=== PATIENT | female | born 1965 ===

== ENCOUNTER 2023-08-11 07:36 | Emergency (ER) | payer OTHER, SELFPAY ==
--- NOTE | ~2023-08-11 | CT_ITS ---
EXAMINATION: CTA OF THE HEAD AND NECK CLINICAL INFORMATION: Left facial deficits. COMPARISON: None available. TECHNIQUE: Test bolus sequences followed by intravenous administration 70 mL of Omnipaque 350. Helical imaging was performed in the axial plane from the mediastinum to the skull vertex. Delayed postcontrast imaging of the head was also performed. The data was processed at the chemistry technologist's workstation for generation of MIP sequences. Three-dimensional volume rendered reformatted images were also generated at an offline 3-D workstation. Stenoses are assessed in accordance with NASCET criteria unless otherwise indicated. This CT examination was performed using dose optimization techniques as appropriate, variously including the following: *Automated exposure control *Adjustment of mA and/or kV according to patient size (this includes techniques or standardized protocols for targeted exams where dose is matched to indication/reason for exam; i.e. extremities or head) *Use of iterative reconstruction technique DLP: 2077 mGy-cm. FINDINGS: CT head: There is no evidence of acute intracranial hemorrhage or territorial infarction. There is no loss of lópez to white matter differentiation. No abnormal mass effect or midline shift is seen. No extra-axial fluid collections are identified. There is no abnormal enhancement. The ventricles are normal in size. There is no abnormal attenuation within the brain parenchyma. The osseous structures and soft tissues are normal. The mastoid air cells and visualized portions of the paranasal sinuses are well aerated. CTA neck: The imaged aortic arch and origins of the great vessels are normal. The common carotid arteries are widely patent. The carotid bifurcations are normal. The cervical internal carotid arteries are normal. The vertebral arteries opacify normally and are of normal caliber. The soft tissues of the neck are unremarkable. Multilevel hypertrophic facet arthropathy noted in the cervical spine with foraminal encroachment. There is moderate disc space narrowing and bulky anterior endplate spurring at the C5-C6 level. Mild anterolisthesis visible at C3-C4. The imaged portions of the lungs are clear. CTA head: The intradural vertebral arteries and basilar artery are normal. The posterior cerebral arteries are widely patent. The internal carotid arteries are of normal caliber. Suspected small infundibulum at the origin of the right posterior communicating artery segment. The CELY and MCA vascular complexes bilaterally are normal. A fenestrated anterior communicating artery segment is incidentally noted. The venous sinuses opacify normally. CT/CT angio head neck IMPRESSION: Normal CT angiogram of the head and neck. No vascular occlusion or hemodynamically significant stenosis. Imaging findings reported to Dr. Haque at 11:01 AM on 08/11/2023.
[2023-08-11 07:41] VITALS: BP 144/80; PULSE 84; RESP 16; TEMP 36.3; O2SAT 95; BMI 34.8
[2023-08-11 08:08] LABS: MANUAL DIFF FLAG NO
[2023-08-11 08:16] LABS: Basophils Percent Auto 0.4 % (0-2); Eosinophils Absolute Auto 0.2 X10*3/uL (0.0-0.4); Eosinophils Percent Auto 4.2 % (0-4); Hematocrit 41.6 % (37.0-47.0); Hemoglobin 13.8 g/dl (12.0-16.0); Imm Gran Abs Auto 0.02 X10*3/uL (0.00-0.03); Imm Gran Pct Auto 0.4 % (0.0-0.4); Lymphocytes Absolute Auto 1.7 X10*3/uL (1.2-4.9); Lymphocytes Percent Auto 31.3 % (20-40); Mean Corpuscular HGB Conc 33.2 g/dl (31.0-35.0); Mean Corpuscular Hemoglobin 28.3 pg (27.0-33.0); Mean Corpuscular Volume 85.2 fL (80.0-98.0); Mean Platelet Volume 10.5 fL (9.4-12.3); Monocytes Absolute Auto 0.3 X10*3/uL (0.1-1.2); Monocytes Percent Auto 5.9 % (2-11); Neutrophils Absolute Auto 3.1 x10*3/uL (2.0-8.3); Neutrophils Percent Auto 57.8 % (45-73); Platelet Count 214 X10*3/uL (160-400); Red Blood Count 4.88 X10*6/uL (4.20-5.50); White Blood Count 5.4 X10*3/uL (4.8-10.8)
[2023-08-11 08:17] LABS: INTERNATIONAL NORM RATIO 0.9 (0.9-1.1); Prothrombin Time 10.7 SEC (11.1-13.3)
[2023-08-11 08:20] LABS: Partial Thromboplastin Time 35.6 SEC (26.0-36.8)
--- NOTE | 2023-08-11 08:35 | ED_ITS ---
HPI - Neuro Symptoms/Deficit General Chief Complaint: Neuro Symptoms/Deficit Stated Complaint: facial numbness Time Seen by Provider: 08/11/23 08:27 Source: patient Mode of arrival: ambulatory Limitations: no limitations History of Present Illness HPI Narrative: 57 yo female with PMH of psoriasis, left sided bells palsy 15 years ago idiopathic here with c/o going to bed okay at 10pm then waking up at 415 with L sided facial numbness tingling and progressive facial droop initially affecting the lower mouth now affecting the eye it keeps progressing. No headaches, no trauma, no recent URI. Not on blood thinners. No neck manipulation or issues. States she has has this before. Onset (ago): hour(s) (last known well 10pm) Location: left face History of same: Yes Severity: moderate Quality: weak and tingling Relieving factors: none Exacerbating factors: none Context: gradual onset On Anticoagulants: No Associated symptoms: denies other symptoms Treatments Prior to Arrival: none Related Data Previous Rx's Medication Instructions Recorded prednisone 20 mg tablet 60 mg (3 x 20 mg) PO DAILY #9 tabs 10/02/22 triamcinolone acetonide 0.025 % 1 appl topical BID #15 grams 10/02/22 topical cream prednisone 20 mg tablet 40 mg (2 x 20 mg) PO DAILY 5 days 08/11/23 #10 tabs valacyclovir 1 gram tablet 1,000 mg PO TID 7 days #21 tabs 08/11/23 (Valtrex) Allergies Allergy/AdvReac Type Severity Reaction Status Date / Time No Known Allergies Allergy Verified 10/02/22 16:11 Review of Systems 2 Review of Systems: Constitutional : No Fever, No Chills, No Fatigue ENT/Mouth : No sore throat, No Rhinorrhea Eyes: No Eye Pain, No Swelling, No Redness Cardiovascular : No Chest Pain, No SOB, No Dyspnea on Exertion Respiratory : No Cough, No Sputum Gastrointestinal : No Nausea, No Vomiting, No Diarrhea, No abdominal Pain Genitourinary : No Dysuria, No Urinary Frequency, No Hematuria, Musculoskeletal : No joint pain, No Myalgias, No Joint Swelling Skin : No Skin Lesions, No rash Neuro : pos Weakness, pos Numbness, No Dizziness, no Headache Psych : No Anxiety/Panic, No Depression Heme/Lymph: No Bruising, No Bleeding,No Lymphadenopathy Endocrine : No Polyuria, No Polydipsia All other systems reviewed and are negative [facility] Past Medical History Attestation statement: The following information was validated with the patient. Source: old records reviewed Medical History Psoriasis Social History Social History Patient Tobacco Use Status: Never used Tobacco Smoked in Last 30 Days: No Use of substances other than those prescribed or required for medical reasons: No Advance Directives: No Advance Directives Information Provided: No Patient : No Physical Exam 2 Vital Signs: Vital Signs: Last Vital Signs Temp 97.7 F 08/11/23 10:56 Pulse 75 08/11/23 10:56 Resp 16 08/11/23 10:56 BP 145/88 H 08/11/23 10:56 Pulse Ox 98 08/11/23 10:56 O2 Del Method Room Air 08/11/23 10:56 BMI result Body Mass Index 34.8 Appearance: Alert. Oriented X3. No acute distress. Eyes: Pupils equal, round and reactive to light. ENT: Pharynx normal. TMs normal Neck: Normal inspection. Neck supple. CVS: Normal heart rate and rhythm. Pulses normal. Respiratory: No respiratory distress. Breath sounds normal. Abdomen: Soft and nontender. Skin: Skin warm and dry. Normal skin color. Normal skin turgor. Extremities: No lower extremity edema. No calf ttp Neuro: Oriented X 3. L sided facial droop involving lower lip, cheek, eyelid and starting to affect the eyebrow area. No sensory deficit. Medications Administered Discontinued Medications Generic Name Dose Route Start Last Admin Trade Name Jace PRN Reason Stop Dose Admin Iohexol 100 ml 08/11/23 09:50 08/11/23 09:51 Iohexol 350 Mg/Ml 100 Ml Infus..Btl IV 08/11/23 09:51 70 ml ONCE ONE Administration Medical Decision Making Medical Decision Making MDM Narrative: 57 yo female with PMH of psoriasis, idiopathic bells palsy 15 years ago here with c/o L sided numbness, weakness last known well 10pm no recent trauma or neck manipulation - this happened before same side. She has progressive symptoms it has worsened it seems more consistent with bells palsy given the worsening symptoms and starting to involve the eyebrow and forehead. At this time labs, CTA angio and if negative will dc home on valtrex and steroids. Differential Diagnosis Differential Diagnoses: The differential diagnosis associated with the presentation includes bells palsy, less likely stroke Admission/Observation Consideration of admission/observation: Escalation of care including admission/observation considered not toxic no acute findings suspect peripheral issue Lab Data MDM Lab Attestation statement: I reviewed the patient's lab results. 08/11/23 07:53 08/11/23 07:53 Labs: Lab Results 08/11/23 Range/Units 07:53 WBC 5.4 (4.8-10.8) X10*3/uL RBC 4.88 (4.20-5.50) X10*6/uL Hgb 13.8 (12.0-16.0) g/dl Hct 41.6 (37.0-47.0) % MCV 85.2 (80.0-98.0) fL MCH 28.3 (27.0-33.0) pg MCHC 33.2 (31.0-35.0) g/dl RDW 13.0 (11.0-16.0) % Plt Count 214 (160-400) X10*3/uL MPV 10.5 (9.4-12.3) fL Immature Gran % (Auto) 0.4 (0.0-0.4) % Neut % (Auto) 57.8 (45-73) % Lymph % (Auto) 31.3 (20-40) % [place] % (Auto) 5.9 (2-11) % Eos % (Auto) 4.2 H (0-4) % Baso % (Auto) 0.4 (0-2) % Lymph # (Auto) 1.7 (1.2-4.9) X10*3/uL [place] # (Auto) 0.3 (0.1-1.2) X10*3/uL Eos # (Auto) 0.2 (0.0-0.4) X10*3/uL Baso # (Auto) 0.0 (0.0-0.2) X10*3/uL Abs Immat Gran (auto) 0.02 (0.00-0.03) X10*3/uL Absolute Neuts (auto) 3.1 (2.0-8.3) x10*3/uL Absolute Nucleated RBC 0.000 (0.0-0.012) X10*3/uL Nucleated RBC % (auto) 0.0 (0.0-0.2) /100WBC PT 10.7 L (11.1-13.3) SEC INR 0.9 (0.9-1.1) APTT 35.6 (26.0-36.8) SEC Sodium 143 (135-145) mmol/L Potassium 3.8 (3.3-5.1) mmol/L Chloride 110 H (96-108) mmol/L Carbon Dioxide 24 (22-29) mmol/L Anion Gap 13 (12-20) BUN 7 L (9-16) mg/dL Creatinine 0.65 (0.5-1.4) mg/dL Estim Creat Clear Calc 82.5 Estimated GFR > 60 Random Glucose 140 H (60-115) mg/dL Calcium 9.3 (8.4-10.2) mg/dL Independent Interpretation I performed an independent interpretation of an: EKG and CT Scan (no stroke) Interpretation: Rate: 71 Rhythm: NSR [place]: left Normal P waves. Normal LISA. Normal QRS complex. ST T wave : normal no NASH qTC: 456 prior studies: no acute ischemia The study has been interpreted contemporaneously by me. . Radiology Impression Discussion of test interpretation with radiology: I discussed test interpretation with the radiologist and I have reviewed the radiologist's reading. Independent Historian Clinical information obtained from an independent historian. History obtained from or confirmed by: Spouse External Record Review External record reviewed: Outpatient record Discharge Plan Discharge Clinical Impression: Wan's palsy Patient Disposition: Home, Self-Care Instructions: Wan Palsy (ED) Additional Instructions: return for worsening symptoms or any other concerns use lubricating eye drops on the eye to prevent it from drying out you can use gentle tape on the eye while sleeping follow up with your doctor in the next week Prescriptions: New prednisone 20 mg tablet 40 mg PO DAILY 5 Days Qty: 10 0RF valacyclovir [Valtrex] 1 gram tablet 1,000 mg PO TID 7 Days Qty: 21 0RF No Action prednisone 20 mg tablet 60 mg PO DAILY Qty: 9 0RF triamcinolone acetonide 0.025 % cream 1 appl topical BID Qty: 15 0RF Stand Alone Forms: Work/School Release
[2023-08-11 08:36] LABS: Anion Gap 13 (12-20); Blood Urea Nitrogen 7 mg/dL (9-16); Calcium 9.3 mg/dL (8.4-10.2); Carbon Dioxide 24 mmol/L (22-29); Chloride 110 mmol/L (96-108); Creatinine Clr Calc Pharmacy 82.5; Estimated Glomerular Filt Rate > 60; Glucose Random 140 mg/dL (60-115); Potassium 3.8 mmol/L (3.3-5.1); Sodium 143 mmol/L (135-145)
[2023-08-11 08:43] VITALS: BP 137/79; PULSE 82; RESP 16; TEMP 36.7; O2SAT 94
--- NOTE | 2023-08-11 08:44 | ECG_ITS ---
Test Reason : NEURO SYMPTOMS Blood Pressure : / mmHG Vent. Rate : 071 BPM Atrial Rate : 071 BPM P-R Int : 144 ms QRS Dur : 070 ms QT Int : 420 ms P-R-T Axes : -12 -10 025 degrees QTc Int : 456 ms Normal sinus rhythm Normal ECG No previous ECGs available Referred By: Jenifer Haque Electronically Signed By:Paul Santana
--- NOTE | 2023-08-11 09:35 | PC.NURSE ---
a&ox4. vss and up to date. pt presents to the ED w/ left sided facial numbness since 0400 this morning. pt states numbness started on left side of mouth and radiates towards left side of face/head. pt states similar episode x 15 years ago. face not symmetrical. slight facial droop noted to the right side of face. no difficulties in speech noted. pt passed swallow eval w/o difficulty. strength equal bilaterally. pt follows commands w/o difficulty. pt seen by ED provider - pt aware of plan of care at this time. 20gIV placed in the left forearm. pt waiting for CTA to be completed. no sob/wob ntoed. respirations even and unlabored. call fernandes placed within reach.
[2023-08-11] MEDS: iohexoL 350 MG/ML 100 ML INFUS..BTL IV (09:51)
--- NOTE | 2023-08-11 09:56 | PC.NURSE ---
pt returned from CTA at this time. results pending.
[2023-08-11 10:56] VITALS: BP 145/88; PULSE 75; RESP 16; TEMP 36.5; O2SAT 98
--- NOTE | 2023-08-11 10:56 | PC.NURSE ---
vss and up to date.neuros intact. pt waiting for CT results at this time. respirations remain even/unlabored. plan of care ongoing. call fernandes placed within reach.
[2023-08-11 11:21] VITALS: BP 145/88; PULSE 75; RESP 16; TEMP 36.5; O2SAT 98
== END 2023-08-11 11:22 | disposition home or self-care (01) ==
PROVIDERS: Emergency Provider Emergency Medicine
DX: G51.0 Bell's palsy (principal)
CPT/HCPCS: 36415; 70496; 70498; 80048; 85025; 85610; 85730; 93005; 99284; 99285; Q9967

== ENCOUNTER → 2023-08-11 08:44 | Outpatient (BNV) | payer OTHER, SELFPAY | PROVIDERS: Emergency Provider Emergency Medicine; Visit Provider Internal Medicine Cardiovascular Disease | DX: G51.9 Disorder of facial nerve, unspecified (principal) | CPT/HCPCS: 93010 ==